=== PATIENT | female | born 1960 | race Caucasian/White ===

== ENCOUNTER 2025-10-07 22:03 | Inpatient (IN) | payer MEDICARE, OTHER ==
[~2025-10-07] VITALS: Ht 162.6 cm; Wt 80.8 kg
[2025-10-07] MEDS ORDERED: NOREPINEPHRINE 8MG/250ML PMX 250 ML IV ONE (22:54)
[2025-10-07] MEDS: NOREPINEPHRINE 8MG/250ML PMX 250 ML IV ONE (23:00)
[2025-10-07] MEDS: SODIUM CHLORIDE 0.9% 1,000 ML IV ONE (23:00)
[2025-10-07] MEDS: ROCURONIUM BROMIDE 10MG/ML VIAL 5ML IV NR (23:02)
[2025-10-07] MEDS: ETOMIDATE 2MG/ML 10ML VIAL IV NR (23:02)
[2025-10-07 23:10] VITALS: PULSE 62; RESP 18; O2SAT 99
[2025-10-07] MEDS: IOHEXOL-350 100 ML BOTTLE ONE (23:16)
[2025-10-07] MEDS ORDERED: MIDAZOLAM 100MG/100ML PMX 100 ML IV PRN (23:30)
[2025-10-07] MEDS: CEFTRIAXONE 1GM/50ML 50 ML IV ONE (23:30)
[2025-10-07 23:43] LABS: BG BASE EXCESS -2.7 mmol/L (-2.0-3.0); BG CARBOXYHEMOGLOBIN 0.9 % (0.5-1.5); BG DEOXYHEMOGLOBIN 0.3 % (0.0-5.0); BG FRACTION INSPIRED OXYGEN 100; BG HCO3 ACT 21.8 mmol/L (21.0-28.0); BG METHEMOGLOBIN 0.0 % (0.5-1.5); BG OXYGEN SATURATION 99.7 % (94.0-98.0); BG OXYHEMOGLOBIN 98.8 % (94.0-98.0); BG PCO2 36.5 mmHg (32.0-45.0); BG PEEP (cmH2O) 5.0 cmH2O; BG PH 7.395 (7.350-7.450); BG PO2 324.2 mmHg (83.0-108.0); BG SAMPLE SITE RIGHT RADIAL; BG TIDAL VOLUME(mL) 450.0 mL; BG TOTAL HEMOGLOBIN 7.9 g/dL (12.0-16.0); BG VENT MODE VENT - AC; BG VENT RATE 18.0 set
[2025-10-07 23:45] LABS: BASOPHILS % 0.7 % (0.0-2.0); EOSINOPHILS % 0.8 % (0.0-5.0); INR 1.6; LYMPHOCYTES % 23.0 % (20.0-50.0); MEAN PLATELET VOLUME 7.0 fl (7.4-10.4); MONOCYTES % 2.6 % (2.0-8.0); NEUTROPHILS % 72.9 % (40.0-76.0); PLATELET 53 x1000/uL (130-400); RED BLOOD CELL COUNT 2.31 mill/uL (4.2-5.4); RED CELL DISTRIBUTION WIDTH 21.1 % (11.6-14.6)
[2025-10-07 23:55] LABS: HEMATOCRIT. 21.5 % (36.0-48.0)
[2025-10-07 23:56] LABS: HEMOGLOBIN. 7.0 g/dL (12.0-16.0)
[2025-10-07] MEDS: ACETAMINOPHEN 1000MG/100ML 100 ML IV ONE (23:56)
[2025-10-07 23:57] LABS: ADD RBC MORPHOLOGY YES
[2025-10-07 23:58] LABS: UREA NITROGEN BLOOD 16 mg/dL (9-23)
[2025-10-07 23:59] LABS: TROPONIN I HIGH SENSITIVITY 26 ng/L (3.0-34)
[2025-10-08] VITALS (116 sets, daily range): BP systolic 73–202; BP diastolic 47–151; PULSE 0–167; RESP 15–39; TEMP 36.50292–38.2; O2SAT 97–100
[2025-10-08] LABS: ASPARTATE AMINOTRANSFERASE 26 IU/L (<34); BILIRUBIN DIRECT 0.4 mg/dL (<=3.0)
[2025-10-08 00:01] LABS: BILIRUBIN TOTAL 0.5 mg/dL (0.1-1.0)
[2025-10-08] MEDS: MIDAZOLAM 100MG/100ML PMX 100 ML IV PRN (00:12)
[2025-10-08 00:13] LABS: PLATELET ESTIMATE DECREASED
[2025-10-08 00:39] LABS: CREATININE 7.1 mg/dL (0.6-1.0); PROTEIN TOTAL 13.2 g/dL (6.0-8.3)
[2025-10-08] MEDS ORDERED: FENTANYL 2500MCG/250ML PMX 250 ML IV PRN (01:00)
[2025-10-08] MEDS ORDERED: DEXMEDETOMIDINE 100 ML IV PRN (01:00)
[2025-10-08] MEDS: DEXMEDETOMIDINE 100 ML IV PRN (01:02)
[2025-10-08] MEDS: FENTANYL 2500MCG/250ML PMX 250 ML IV PRN (01:05)
[2025-10-08] MEDS ORDERED: GUAIFENESIN 200MG/10ML SUGAR FREE UDC PO PRN (01:30)
[2025-10-08] MEDS ORDERED: ONDANSETRON HCL 4MG/2ML INJ IV PRN (01:30)
[2025-10-08] MEDS ORDERED: IPRATROPIUM/ALBUTEROL 0.5-3(2.5)MG/3ML NEB HHN PRN (01:30)
[2025-10-08] MEDS ORDERED: MAGNESIUM/ALUMINUM HYDROXIDE/SIMETHICONE 30ML UDC PO PRN (01:30)
[2025-10-08] MEDS ORDERED: ACETAMINOPHEN 325MG TABLET PO PRN ×2 (01:30)
[2025-10-08] MEDS ORDERED: NOREPINEPHRINE 8MG/250ML PMX 250 ML IV PRN (01:30)
[2025-10-08] MEDS ORDERED: CLONIDINE 0.1MG TABLET PO PRN (01:30)
[2025-10-08] MEDS ORDERED: SODIUM CHLORIDE 10% FOR INH 15ML NEB INH SCH (01:45)
[2025-10-08] MEDS ORDERED: AZITHROMYCIN 500MG/250ML 250 ML IV SCH (02:00)
[2025-10-08] MEDS: VANCOMYCIN 1.75GM PMX (XELLIA) 350 ML IV NR (02:52)
[2025-10-08] MEDS: SODIUM CHLORIDE 0.9% 1,000 ML IV SCH ×2 (02:53→03:45)
[2025-10-08] MEDS: AZITHROMYCIN 500MG/250ML 250 ML IV SCH (04:00)
[2025-10-08 05:27] LABS: RED BLOOD CELL COUNT 2.13 mill/uL (4.2-5.4); RED CELL DISTRIBUTION WIDTH 22.0 % (11.6-14.6)
[2025-10-08 05:49] LABS: PLATELET 41 x1000/uL (130-400)
[2025-10-08 06:02] LABS: LDL CHOLESTEROL 6 mg/dL (5-100); TRIGLYCERIDE 57 mg/dL (0-150); UREA NITROGEN BLOOD 20 mg/dL (9-23)
[2025-10-08 06:03] LABS: ASPARTATE AMINOTRANSFERASE 22 IU/L (<34)
[2025-10-08 06:04] LABS: BILIRUBIN DIRECT 0.4 mg/dL (<=3.0); BILIRUBIN TOTAL 0.6 mg/dL (0.1-1.0)
[2025-10-08 06:05] LABS: T4 FREE 0.98 ng/dL (0.89-1.76)
[2025-10-08 06:55] LABS: CREATININE 7.3 mg/dL (0.6-1.0); PROTEIN TOTAL 13.1 g/dL (6.0-8.3)
[2025-10-08] MEDS: PIPERACILLIN/TAZO 3.375G/50ML 50 ML IV SCH (08:36)
[2025-10-08] MEDS: ENOXAPARIN 30MG/0.3ML SYR SUBCUT SCH (09:00)
[2025-10-08] MEDS ORDERED: PIPERACILLIN/TAZO 3.375G/50ML 50 ML IV SCH (09:00)
[2025-10-08] MEDS: IPRATROPIUM/ALBUTEROL 0.5-3(2.5)MG/3ML NEB HHN SCH (09:39)
[2025-10-08] MEDS: NOREPINEPHRINE 8MG/250ML PMX 250 ML IV PRN (12:14)
[2025-10-08] MEDS: PANTOPRAZOLE SODIUM 40 MG/VIAL IV SCH (12:15)
[2025-10-08] MEDS ORDERED: SODIUM CHLORIDE 3% FOR INH 15ML NEB INH ONE (12:30)
[2025-10-08] MEDS ORDERED: ATROPINE SULFATE 1MG/ML VIAL IV PRN (13:00)
[2025-10-08 13:17] LABS: BG BASE EXCESS -6.5 mmol/L (-2.0-3.0); BG CARBOXYHEMOGLOBIN 0.5 % (0.5-1.5); BG DEOXYHEMOGLOBIN 0.4 % (0.0-5.0); BG FRACTION INSPIRED OXYGEN 40; BG HCO3 ACT 17.5 mmol/L (21.0-28.0); BG METHEMOGLOBIN 0.3 % (0.5-1.5); BG OXYGEN SATURATION 99.6 % (94.0-98.0); BG OXYHEMOGLOBIN 98.8 % (94.0-98.0); BG PCO2 29.1 mmHg (32.0-45.0); BG PEEP (cmH2O) 5.0 cmH2O; BG PH 7.397 (7.350-7.450); BG PO2 147.9 mmHg (83.0-108.0); BG SAMPLE SITE RIGHT RADIAL; BG TIDAL VOLUME(mL) 450.0 mL; BG TOTAL HEMOGLOBIN 8.7 g/dL (12.0-16.0); BG VENT MODE VENT - AC; BG VENT RATE 18.0 set
[2025-10-08 16:53] LABS: UREA NITROGEN BLOOD 22.0 mg/dL (9-23)
[2025-10-08 16:56] LABS: CREATININE 7.2 mg/dL (0.6-1.0)
[2025-10-08 17:17] LABS: HEPATITIS A AB IGM NEGATIVE (Negative); HEPATITIS B CORE AB IGM NEGATIVE (Negative)
[2025-10-08 17:17] LABS: TROPONIN I HIGH SENSITIVITY 91 ng/L (3.0-34)
[2025-10-08 17:18] LABS: HEPATITIS C AB NON REACTIVE (Neg) (Negative)
[2025-10-08 17:35] LABS: BG BASE EXCESS -7.8 mmol/L (-2.0-3.0); BG CARBOXYHEMOGLOBIN 0.5 % (0.5-1.5); BG DEOXYHEMOGLOBIN 1.7 % (0.0-5.0); BG FRACTION INSPIRED OXYGEN 40; BG HCO3 ACT 16.2 mmol/L (21.0-28.0); BG METHEMOGLOBIN 0.3 % (0.5-1.5); BG OXYGEN SATURATION 98.3 % (94.0-98.0); BG OXYHEMOGLOBIN 97.5 % (94.0-98.0); BG PCO2 27.7 mmHg (32.0-45.0); BG PEEP (cmH2O) 5.0 cmH2O; BG PH 7.384 (7.350-7.450); BG PO2 98.2 mmHg (83.0-108.0); BG SAMPLE SITE LEFT RADIAL; BG TIDAL VOLUME(mL) 450.0 mL; BG TOTAL HEMOGLOBIN 9.5 g/dL (12.0-16.0); BG VENT MODE VENT - AC; BG VENT RATE 18.0 set
[2025-10-08 17:39] LABS: PHOSPHORUS 6.5 mg/dL (2.5-4.9)
[2025-10-08] MEDS ORDERED: DOPAMINE 400MG/250ML PREMIX 250 ML IV PRN (18:15)
[2025-10-08] MEDS: METHYLPREDNISOLONE SOD SUCC 40MG/ML (ACT-O-VIAL) IV SCH (18:42)
[2025-10-08] MEDS: MAGNESIUM 2 G PREMIX 50 ML IV NR (18:42)
[2025-10-08] MEDS: LEVOTHYROXINE SODIUM 100 MCG/ VIAL IV SCH (18:43)
[2025-10-08] MEDS: DAPTOMYCIN 700 MG in SODIUM CHLORIDE 0.9% 50 ML IV SCH (22:22)
[2025-10-09] VITALS (104 sets, daily range): BP systolic 72–184; BP diastolic 50–130; PULSE 70–86; RESP 14–28; TEMP 36.4–37.2; O2SAT 96–100
[2025-10-09 01:16] LABS: RED BLOOD CELL COUNT 2.59 mill/uL (4.2-5.4); RED CELL DISTRIBUTION WIDTH 18.4 % (11.6-14.6)
[2025-10-09 01:19] LABS: PLATELET 36 x1000/uL (130-400)
[2025-10-09] MEDS ORDERED: AZITHROMYCIN 500MG/250ML 250 ML IV SCH (06:00)
[2025-10-09 06:59] LABS: RED BLOOD CELL COUNT 2.54 mill/uL (4.2-5.4); RED CELL DISTRIBUTION WIDTH 19.6 % (11.6-14.6)
[2025-10-09] MEDS ORDERED: LIDOCAINE HCL 1% 10 MG/ML 10ML VIAL ONE (07:20)
[2025-10-09 07:28] LABS: PLATELET 31 x1000/uL (130-400)
[2025-10-09] MEDS ORDERED: LEVOTHYROXINE SODIUM 100 MCG/ VIAL IV SCH (09:00)
[2025-10-09 09:12] LABS: PHOSPHORUS 8.4 mg/dL (2.5-4.9)
[2025-10-09] MEDS: HYDRALAZINE 20MG/ML VIAL IV PRN (10:34)
[2025-10-09] MEDS: AMLODIPINE 10MG TABLET PO SCH (10:35)
[2025-10-09] MEDS: CEFEPIME 1,000 MG in DEXT 5% WATER 100 ML IV SCH (10:35)
[2025-10-09 10:50] LABS: UREA NITROGEN BLOOD 21.0 mg/dL (9-23)
[2025-10-09 10:55] LABS: CREATININE 5.2 mg/dL (0.6-1.0)
[2025-10-09 10:57] LABS: BG BASE EXCESS -0.5 mmol/L (-2.0-3.0); BG CARBOXYHEMOGLOBIN 0.7 % (0.5-1.5); BG DEOXYHEMOGLOBIN 0.4 % (0.0-5.0); BG FRACTION INSPIRED OXYGEN 40; BG HCO3 ACT 23.5 mmol/L (21.0-28.0); BG METHEMOGLOBIN 0.3 % (0.5-1.5); BG OXYGEN SATURATION 99.6 % (94.0-98.0); BG OXYHEMOGLOBIN 98.6 % (94.0-98.0); BG PCO2 35.6 mmHg (32.0-45.0); BG PEEP (cmH2O) 5.0 cmH2O; BG PH 7.437 (7.350-7.450); BG PO2 146.1 mmHg (83.0-108.0); BG SAMPLE SITE RIGHT RADIAL; BG TIDAL VOLUME(mL) 450.0 mL; BG TOTAL HEMOGLOBIN 8.9 g/dL (12.0-16.0); BG VENT MODE VENT - AC; BG VENT RATE 18.0 set
[2025-10-09] MEDS: LEVOTHYROXINE SODIUM 100 MCG/ VIAL IV SCH (12:00)
[2025-10-10] VITALS (98 sets, daily range): BP systolic 129–164; BP diastolic 62–136; PULSE 68–86; RESP 14–30; TEMP 36.114–37; O2SAT 94–99
[2025-10-10 06:03] LABS: RED BLOOD CELL COUNT 2.60 mill/uL (4.2-5.4); RED CELL DISTRIBUTION WIDTH 20.0 % (11.6-14.6)
[2025-10-10 06:05] LABS: UREA NITROGEN BLOOD 44 mg/dL (9-23)
[2025-10-10 07:05] LABS: PLATELET 24 x1000/uL (130-400)
[2025-10-10 08:40] LABS: BG BASE EXCESS -4.5 mmol/L (-2.0-3.0); BG CARBOXYHEMOGLOBIN 0.8 % (0.5-1.5); BG DEOXYHEMOGLOBIN 0.6 % (0.0-5.0); BG FRACTION INSPIRED OXYGEN 40; BG HCO3 ACT 20.6 mmol/L (21.0-28.0); BG METHEMOGLOBIN 0.1 % (0.5-1.5); BG OXYGEN SATURATION 99.4 % (94.0-98.0); BG OXYHEMOGLOBIN 98.5 % (94.0-98.0); BG PCO2 37.6 mmHg (32.0-45.0); BG PEEP (cmH2O) 5.0 cmH2O; BG PH 7.356 (7.350-7.450); BG PO2 172.7 mmHg (83.0-108.0); BG SAMPLE SITE RIGHT RADIAL; BG TIDAL VOLUME(mL) 450.0 mL; BG TOTAL HEMOGLOBIN 10.1 g/dL (12.0-16.0); BG VENT MODE VENT - AC; BG VENT RATE 18.0 set
[2025-10-10 09:04] LABS: CREATININE 6.5 mg/dL (0.6-1.0)
[2025-10-10 09:06] LABS: PHOSPHORUS 9.8 mg/dL (2.5-4.9)
[2025-10-10] MEDS: CEFEPIME 1GM PREMIX 50ML IV SCH (09:33)
[2025-10-10 13:25] LABS: BILIRUBIN DIRECT 1.0 mg/dL (<=3.0); LACTATE DEHYDROGENASE 286.0 IU/L (120-246)
[2025-10-10 13:26] LABS: BILIRUBIN TOTAL 1.4 mg/dL (0.1-1.0)
[2025-10-10] MEDS ORDERED: LIDOCAINE HCL 1% 10 MG/ML 10ML VIAL ONE (13:56)
[2025-10-10] MEDS: MORPHINE SULFATE 2 MG/ML INJ (NOT FOR IM USE) IV PRN (20:04)
[2025-10-11] VITALS (82 sets, daily range): BP systolic 137–155; BP diastolic 81–99; PULSE 72–95; RESP 11–33; TEMP 36.55848–36.9; O2SAT 93–100
[2025-10-11] MEDS: LORAZEPAM 2MG/ML UD SYRINGE IV PRN (04:23)
[2025-10-11 05:39] LABS: RED BLOOD CELL COUNT 2.52 mill/uL (4.2-5.4); RED CELL DISTRIBUTION WIDTH 19.2 % (11.6-14.6)
[2025-10-11 05:53] LABS: UREA NITROGEN BLOOD 44 mg/dL (9-23)
[2025-10-11 05:55] LABS: PHOSPHORUS 7.0 mg/dL (2.5-4.9)
[2025-10-11 05:56] LABS: CREATININE 5.0 mg/dL (0.6-1.0)
[2025-10-11 05:57] LABS: VITAMIN B12 SERUM 307 pg/mL (211-911)
[2025-10-11 06:04] LABS: C REACTIVE PROTEIN HIGH SENS 39.73 mg/l (<1.00)
[2025-10-11 06:29] LABS: ERYTHROCYTE SEDIMENTATION RATE 113 mm/hr (0-30)
[2025-10-11 06:44] LABS: PLATELET 20 x1000/uL (130-400)
[2025-10-11] MEDS: CEFTRIAXONE 2GM/50ML 50 ML IV SCH (08:28)
[2025-10-11 09:19] LABS: BG BASE EXCESS -2.2 mmol/L (-2.0-3.0); BG CARBOXYHEMOGLOBIN 1.1 % (0.5-1.5); BG DEOXYHEMOGLOBIN 2.0 % (0.0-5.0); BG FRACTION INSPIRED OXYGEN 30; BG HCO3 ACT 22.1 mmol/L (21.0-28.0); BG METHEMOGLOBIN 0.3 % (0.5-1.5); BG OXYGEN SATURATION 98.0 % (94.0-98.0); BG OXYHEMOGLOBIN 96.6 % (94.0-98.0); BG PCO2 36.0 mmHg (32.0-45.0); BG PEEP (cmH2O) 5.0 cmH2O; BG PH 7.406 (7.350-7.450); BG PO2 94.3 mmHg (83.0-108.0); BG SAMPLE SITE RIGHT RADIAL; BG TIDAL VOLUME(mL) 450.0 mL; BG TOTAL HEMOGLOBIN 9.0 g/dL (12.0-16.0); BG VENT MODE VENT - AC; BG VENT RATE 18.0 set
[2025-10-11 21:22] LABS: HEMATOCRIT. 23.4 % (36.0-48.0); HEMOGLOBIN. 7.7 g/dL (12.0-16.0); MEAN PLATELET VOLUME 9.0 fl (7.4-10.4); RED BLOOD CELL COUNT 2.54 mill/uL (4.2-5.4); RED CELL DISTRIBUTION WIDTH 22.0 % (11.6-14.6)
[2025-10-11 21:33] LABS: PLATELET 39 x1000/uL (130-400)
[2025-10-11 22:18] LABS: BAND% 1.0 % (1.0-6.0); LYMPHOCYTES % MANUAL 15.0 % (20.0-60.0); MONOCYTES % MANUAL 7.0 % (2.0-8.0); NEUTROPHILS % MANUAL 77.0 % (45.0-75.0); NUCLEATED RED BLOOD CELLS 3 /100 WBC
[2025-10-11 22:19] LABS: PLATELET ESTIMATE MARKEDLY DECREASED
[2025-10-12] VITALS (61 sets, daily range): BP systolic 135–158; BP diastolic 79–95; PULSE 78–100; RESP 11–28; TEMP 36.3–37.2; O2SAT 95–100
[2025-10-12 05:20] LABS: RED BLOOD CELL COUNT 2.48 mill/uL (4.2-5.4); RED CELL DISTRIBUTION WIDTH 20.9 % (11.6-14.6)
[2025-10-12 05:38] LABS: UREA NITROGEN BLOOD 57 mg/dL (9-23)
[2025-10-12 05:40] LABS: PHOSPHORUS 6.4 mg/dL (2.5-4.9)
[2025-10-12 05:59] LABS: CREATININE 5.9 mg/dL (0.6-1.0)
[2025-10-12 06:32] LABS: PLATELET 35 x1000/uL (130-400)
[2025-10-12 09:08] LABS: BG BASE EXCESS -3.0 mmol/L (-2.0-3.0); BG CARBOXYHEMOGLOBIN 1.1 % (0.5-1.5); BG DEOXYHEMOGLOBIN 2.6 % (0.0-5.0); BG FRACTION INSPIRED OXYGEN 30; BG HCO3 ACT 21.0 mmol/L (21.0-28.0); BG METHEMOGLOBIN 0.3 % (0.5-1.5); BG OXYGEN SATURATION 97.4 % (94.0-98.0); BG OXYHEMOGLOBIN 96.0 % (94.0-98.0); BG PCO2 33.5 mmHg (32.0-45.0); BG PEEP (cmH2O) 5.0 cmH2O; BG PH 7.416 (7.350-7.450); BG PO2 83.9 mmHg (83.0-108.0); BG SAMPLE SITE RIGHT RADIAL; BG TIDAL VOLUME(mL) 450.0 mL; BG TOTAL HEMOGLOBIN 8.8 g/dL (12.0-16.0); BG VENT MODE VENT - AC; BG VENT RATE 18.0 set
[2025-10-12] MEDS ORDERED: DEXTROSE 50% WATER 50ML SYRINGE IV PRN (17:30)
[2025-10-12] MEDS: BLOOD SUGAR DIAGNOSTIC STRIP TEST SCH (17:30)
[2025-10-12] MEDS ORDERED: NALOXONE HCL 0.4MG/ML VIAL IV PRN (17:45)
[2025-10-12] MEDS: DEXT 5%/0.9% NACL 1,000 ML IV SCH (18:37)
[2025-10-12] MEDS: INSULIN LISPRO 100 UNITS/ML SUBCUT SCH (18:39)
[2025-10-13] VITALS (65 sets, daily range): BP systolic 130–166; BP diastolic 75–92; PULSE 77–96; RESP 12–32; TEMP 36.7–37.28076; O2SAT 96–100
[2025-10-13] MEDS: BLOOD SUGAR DIAGNOSTIC STRIP TEST SCH
[2025-10-13] MEDS: INSULIN LISPRO 100 UNITS/ML SUBCUT SCH (01:24)
[2025-10-13 06:28] LABS: UREA NITROGEN BLOOD 65 mg/dL (9-23)
[2025-10-13 06:30] LABS: PHOSPHORUS 6.1 mg/dL (2.5-4.9)
[2025-10-13 07:30] LABS: CREATININE 6.8 mg/dL (0.6-1.0)
[2025-10-13] MEDS ORDERED: LIDOCAINE HCL 1% 10 MG/ML 10ML VIAL ONE (08:51)
[2025-10-13 10:34] LABS: MEAN PLATELET VOLUME 8.0 fl (7.4-10.4); RED BLOOD CELL COUNT 2.20 mill/uL (4.2-5.4); RED CELL DISTRIBUTION WIDTH 20.2 % (11.6-14.6)
[2025-10-13 10:59] LABS: HEMATOCRIT. 20.4 % (36.0-48.0); HEMOGLOBIN. 6.5 g/dL (12.0-16.0); PLATELET 36 x1000/uL (130-400)
[2025-10-13] MEDS ORDERED: DEXMEDETOMIDINE 100 ML IV PRN (11:09)
[2025-10-13 11:44] LABS: BAND% 16.0 % (1.0-6.0); LYMPHOCYTES % MANUAL 12.0 % (20.0-60.0); METAMYELOCYTES % 2.0 % (0-0); MONOCYTES % MANUAL 8.0 % (2.0-8.0); MYELOCYTES % 4.0 % (0-0); NEUTROPHILS % MANUAL 58.0 % (45.0-75.0); NUCLEATED RED BLOOD CELLS 5 /100 WBC; PLATELET ESTIMATE MARKEDLY DECREASED
[2025-10-13] MEDS: VANCOMYCIN 1.5GM/250ML 250 ML IV SCH (18:32)
[2025-10-14] VITALS (89 sets, daily range): BP systolic 72–154; BP diastolic 43–90; PULSE 37–93; RESP 0–36; TEMP 36.89184–37.503; O2SAT 74–100
[2025-10-14 00:11] LABS: RED BLOOD CELL COUNT 2.37 mill/uL (4.2-5.4); RED CELL DISTRIBUTION WIDTH 17.5 % (11.6-14.6)
[2025-10-14 00:15] LABS: PLATELET 37 x1000/uL (130-400)
[2025-10-14 05:38] LABS: UREA NITROGEN BLOOD 46 mg/dL (9-23)
[2025-10-14 05:40] LABS: PHOSPHORUS 5.3 mg/dL (2.5-4.9)
[2025-10-14 05:42] LABS: CREATININE 5.2 mg/dL (0.6-1.0)
[2025-10-14 05:56] LABS: RED BLOOD CELL COUNT 2.29 mill/uL (4.2-5.4); RED CELL DISTRIBUTION WIDTH 18.0 % (11.6-14.6)
[2025-10-14 06:14] LABS: FOLATE HEMATOCRIT 23.3 % (34.0-46.6)
[2025-10-14 07:17] LABS: PLATELET 35 x1000/uL (130-400)
[2025-10-14 08:57] LABS: BG BASE EXCESS 0.5 mmol/L (-2.0-3.0); BG CARBOXYHEMOGLOBIN 1.6 % (0.5-1.5); BG DEOXYHEMOGLOBIN 2.6 % (0.0-5.0); BG FRACTION INSPIRED OXYGEN 30; BG HCO3 ACT 24.5 mmol/L (21.0-28.0); BG METHEMOGLOBIN 0.2 % (0.5-1.5); BG OXYGEN SATURATION 97.4 % (94.0-98.0); BG OXYHEMOGLOBIN 95.6 % (94.0-98.0); BG PCO2 36.7 mmHg (32.0-45.0); BG PEEP (cmH2O) 5.0 cmH2O; BG PH 7.443 (7.350-7.450); BG PO2 86.6 mmHg (83.0-108.0); BG SAMPLE SITE RIGHT RADIAL; BG TIDAL VOLUME(mL) 450.0 mL; BG TOTAL HEMOGLOBIN 8.7 g/dL (12.0-16.0); BG VENT MODE VENT - AC; BG VENT RATE 18.0 set
[2025-10-14] MEDS: CEFEPIME 1GM/50ML 50 ML IV SCH (09:00)
[2025-10-14] MEDS ORDERED: CEFEPIME 2GM/100ML 100 ML IV SCH (09:00)
[2025-10-14] MEDS: LISINOPRIL 10MG TABLET PO SCH (11:25)
[2025-10-14 12:26] LABS: RED BLOOD CELL COUNT 2.14 mill/uL (4.2-5.4); RED CELL DISTRIBUTION WIDTH 18.3 % (11.6-14.6)
[2025-10-14] MEDS: CYANOCOBALAMIN 1000MCG/ML VIAL IM SCH (12:42)
[2025-10-14 13:07] LABS: FOLATE HEMOLYSATE 316.0 ng/mL (Not Estab.); FOLATE RBC 1356 ng/mL (>498)
[2025-10-14] MEDS: ERGOCALCIFEROL 50000UNITS CAPSULE PO SCH (13:39)
[2025-10-14] MEDS: ATROPINE SULFATE 1MG/10ML SYR IV PRN (20:57)
[2025-10-14] MEDS: CARVEDILOL 3.125 MG TABLET PO SCH (21:47)
[2025-10-14 22:40] LABS: MEAN PLATELET VOLUME 11.2 fl (7.4-10.4); RED BLOOD CELL COUNT 2.29 mill/uL (4.2-5.4); RED CELL DISTRIBUTION WIDTH 17.2 % (11.6-14.6)
[2025-10-14 22:48] LABS: HEMATOCRIT. 21.1 % (36.0-48.0); HEMOGLOBIN. 6.9 g/dL (12.0-16.0); PLATELET 28 x1000/uL (130-400)
[2025-10-14 22:55] LABS: PLATELET 54 x1000/uL (130-400)
[2025-10-14 23:35] LABS: BG BASE EXCESS -16.5 mmol/L (-2.0-3.0); BG CARBOXYHEMOGLOBIN 0.5 % (0.5-1.5); BG DEOXYHEMOGLOBIN 6.3 % (0.0-5.0); BG FRACTION INSPIRED OXYGEN 30; BG HCO3 ACT 8.9 mmol/L (21.0-28.0); BG METHEMOGLOBIN 0.0 % (0.5-1.5); BG OXYGEN SATURATION 93.7 % (94.0-98.0); BG OXYHEMOGLOBIN 93.2 % (94.0-98.0); BG PCO2 20.7 mmHg (32.0-45.0); BG PEEP (cmH2O) 5.0 cmH2O; BG PH 7.251 (7.350-7.450); BG PO2 73.6 mmHg (83.0-108.0); BG SAMPLE SITE LEFT RADIAL; BG TOTAL HEMOGLOBIN 9.8 g/dL (12.0-16.0); BG VENT MODE VENT - AC; BG VENT RATE 18.0 set
[2025-10-15] VITALS (15 sets, daily range): BP systolic 38–143; BP diastolic 16–70; PULSE 10–55; RESP 6–39; TEMP 36.6; O2SAT 70–100
[2025-10-15] MEDS ORDERED: VASOPRESSIN 20 UNIT in SODIUM CHLORIDE 0.9% 99 ML IV PRN
[2025-10-15 00:22] LABS: RED BLOOD CELL COUNT 1.86 mill/uL (4.2-5.4); RED CELL DISTRIBUTION WIDTH 17.7 % (11.6-14.6)
[2025-10-15] MEDS: DEXT 5%/0.9% NACL 1,000 ML IV SCH (00:32)
[2025-10-15] MEDS: SODIUM CHLORIDE 0.9% 500 ML IV ONE (00:32)
[2025-10-15] MEDS: EPINEPHRINE 10 MG in SODIUM CHLORIDE 0.9% 240 ML IV PRN (00:33)
[2025-10-15 00:49] LABS: CREATINE KINASE MB FRACTION < 0.5 ng/mL (0.5-3.6); CREATININE 4.5 mg/dL (0.6-1.0)
[2025-10-15 00:50] LABS: UREA NITROGEN BLOOD 49 mg/dL (9-23)
[2025-10-15 00:52] LABS: PHOSPHORUS 6.5 mg/dL (2.5-4.9)
[2025-10-15 06:48] LABS: TROPONIN I HIGH SENSITIVITY 113 ng/L (3.0-34)
[2025-10-15] MEDS ORDERED: ASCORBIC ACID 500 MG TABLET PO SCH (09:00)
[2025-10-15] MEDS ORDERED: ZINC SULFATE 220 MG ( 50 ) CAPSULE PO SCH (09:00)
[2025-10-15 10:58] LABS: PLATELET 118 x1000/uL (130-400)
[2025-10-15 14:33] LABS: BAND% 7.0 % (1.0-6.0); LYMPHOCYTES % MANUAL 61.0 % (20.0-60.0); METAMYELOCYTES % 5.0 % (0-0); MONOCYTES % MANUAL 2.0 % (2.0-8.0); MYELOCYTES % 5.0 % (0-0); NEUTROPHILS % MANUAL 20.0 % (45.0-75.0); NUCLEATED RED BLOOD CELLS 2 /100 WBC; PLATELET ESTIMATE MARKEDLY DECREASED
== END 2025-10-15 03:22 | DRG 314 ==
LOC: ER 22:03 → MICUSO 10-08 00:39 → EDBEDREQ 10-08 00:41 → EDBEDREQDT 10-08 00:41 → EDBEDREQSVC 10-08 00:41 → EDBEDREQTM 10-08 00:41 → ENRESERV 10-08 01:22
PROVIDERS: ADMIT Internal Medicine; ATTEND Internal Medicine
PROC: 5A1955Z Respiratory Ventilation, Greater than 96 Consecutive Hours (ICD-10-PCS; principal; 2025-10-07)
PROC: 0BH17EZ Insertion of Endotracheal Airway into Trachea, Via Natural or Artificial Opening (ICD-10-PCS; 2025-10-07)
PROC: 5A12012 Performance of Cardiac Output, Single, Manual (ICD-10-PCS; 2025-10-08)
PROC: 30233N1 Transfusion of Nonautologous Red Blood Cells into Peripheral Vein, Percutaneous Approach (ICD-10-PCS; 2025-10-08)
PROC: 5A1D70Z Performance of Urinary Filtration, Intermittent, Less than 6 Hours Per Day (ICD-10-PCS; 2025-10-08)
PROC: 05HY33Z Insertion of Infusion Device into Upper Vein, Percutaneous Approach (ICD-10-PCS; 2025-10-09)
PROC: B54MZZA Ultrasonography of Right Upper Extremity Veins, Guidance (ICD-10-PCS; 2025-10-09)
PROC: 0JPTXXZ Removal of Tunneled Vascular Access Device from Trunk Subcutaneous Tissue and Fascia, External Approach (ICD-10-PCS; 2025-10-10)
PROC: 4A00X4Z Measurement of Central Nervous Electrical Activity, External Approach (ICD-10-PCS; 2025-10-10)
PROC: 5A1D70Z Performance of Urinary Filtration, Intermittent, Less than 6 Hours Per Day (ICD-10-PCS; 2025-10-10)
PROC: 30233R1 Transfusion of Nonautologous Platelets into Peripheral Vein, Percutaneous Approach (ICD-10-PCS; 2025-10-11)
PROC: 02HV33Z Insertion of Infusion Device into Superior Vena Cava, Percutaneous Approach (ICD-10-PCS; 2025-10-13)
PROC: B548ZZA Ultrasonography of Superior Vena Cava, Guidance (ICD-10-PCS; 2025-10-13)
PROC: 5A1D70Z Performance of Urinary Filtration, Intermittent, Less than 6 Hours Per Day (ICD-10-PCS; 2025-10-13)
PROC: 5A12012 Performance of Cardiac Output, Single, Manual (ICD-10-PCS; 2025-10-15)
DX: T80.211A Bloodstream infection due to central venous catheter, initial encounter (principal); A40.8 Other streptococcal sepsis; G92.8 Other toxic encephalopathy; N18.6 End stage renal disease; J96.01 Acute respiratory failure with hypoxia; R65.21 Severe sepsis with septic shock; I46.2 Cardiac arrest due to underlying cardiac condition; I13.2 Hypertensive heart and chronic kidney disease with heart failure and with stage 5 chronic kidney disease, or end stage renal disease; D61.818 Other pancytopenia; C90.00 Multiple myeloma not having achieved remission; D68.9 Coagulation defect, unspecified; I47.20 Ventricular tachycardia, unspecified; J91.8 Pleural effusion in other conditions classified elsewhere; Z99.2 Dependence on renal dialysis; D69.59 Other secondary thrombocytopenia; E11.22 Type 2 diabetes mellitus with diabetic chronic kidney disease; E03.9 Hypothyroidism, unspecified; D64.9 Anemia, unspecified; E87.1 Hypo-osmolality and hyponatremia; E78.5 Hyperlipidemia, unspecified; E83.51 Hypocalcemia; T38.0X5A Adverse effect of glucocorticoids and synthetic analogues, initial encounter; Z55.6 Problems related to health literacy; Z80.7 Family history of other malignant neoplasms of lymphoid, hematopoietic and related tissues; Z86.73 Personal history of transient ischemic attack (TIA), and cerebral infarction without residual deficits; Z88.2 Allergy status to sulfonamides; Z88.3 Allergy status to other anti-infective agents; Z88.5 Allergy status to narcotic agent; Y83.8 Other surgical procedures as the cause of abnormal reaction of the patient, or of later complication, without mention of misadventure at the time of the procedure; Y92.89 Other specified places as the place of occurrence of the external cause
CPT/HCPCS: 31500; 31720; 36415; 36430; 36556; 36573; 36589; 36600; 70496; 70498; 71045; 74018; 76604; 76705; 77001; 80048; 80061; 80076; 80202; 80320; 82247; 82248; 82270; 82306; 82375; 82533; 82550; 82553; 82607; 82728; 82747; 82805; 82962; 83036; 83540; 83550; 83605; 83615; 83735; 83880; 83930; 84100; 84145; 84439; 84443; 84484; 85014; 85018; 85025; 85027; 85044; 85362; 85379; 85384; 85651; 86022; 86141; 86705; 86709; 86850; 86900; 86920; 87070; 87077; 87186; 87340; 90935; 92950; 93005; 93306; 93970; 94002; 94003; 94070; 94640; 94664; 94760; 95816; 98960; 99291; C1725; C1752; C1769; C1887; J0360; J0456; J0692; J0696; J0878; J1815; J2003; J2060; J2270; J2470; J2543; J2919; J3373; J3420; J3475; J3490; J7030; J7042; J7060; J7131; P9016; P9034; Q9967; G0480; J0131